=== PATIENT | female | born 1975 | race American Indian/Alaskan Native ===

== ENCOUNTER 2016-07-21 12:28 | Outpatient (CLI) | payer MEDICAID ==
--- NOTE | 2016-07-22 12:06 | Magnetic Resonance Report ---
MRI the RIGHT KNEE WITHOUT CONTRAST: 07/21/16 CLINICAL: Right knee pain and swelling. TECHNIQUE: Sagittal proton density fat sat and T2, coronal T2 fat sat and proton density and axial gradient T2*sequences on a 1.5 Sally magnet. FINDINGS: Flap tear of the posterior horn medial meniscus with oblique hyperintense signal extending to the inferior articular surface. The lateral meniscus is intact. A partial tear of the distal ACL near its tibial attachment. There is hyperintense signal and some thickening of the ligament. The PCL is intact. Intact collateral ligaments. The posterolateral corner structures including the popliteus tendon are intact. Normal marrow signal with no bone contusion or fracture. Moderate focal thinning of the medial femoral cartilage. There is a large knee joint effusion. No popliteal cyst. Intact patella within normal cartilage, tendon and retinaculum. IMPRESSION: 1.Old tear of the posterior horn medial meniscus. 2. Old partial thickness tear of the distal ACL. 3. Large knee joint effusion. 4. Focal thinning of the medial femoral cartilage but no loose bodies identified.
== END 2016-07-21 12:29 | disposition home or self-care (01) ==
LOC: SPVIMAG 12:28
PROVIDERS: ATTEND Radiology Vascular & Interventional Radiology
DX: S83.241A Other tear of medial meniscus, current injury, right knee, initial encounter (principal); M25.461 Effusion, right knee; M79.89 Other specified soft tissue disorders; X58.XXXA Exposure to other specified factors, initial encounter; Y93.89 Activity, other specified; Y92.89 Other specified places as the place of occurrence of the external cause; Y99.8 Other external cause status
CPT/HCPCS: 73721

== ENCOUNTER 2016-10-12 23:08 | Emergency (ER) | payer MEDICAID ==
[2016-10-13 02:36] LABS: Eosinophils % (Auto) 0.6 % (0.0-4.3); Hematocrit 39.1 % (30.3-42.9); Mean Corpuscular HGB Conc 33 % (30-34); Mean Corpuscular Hemoglobin 29 pg (28-32); Mean Corpuscular Volume 89 fl (79-97); Platelet Count 201 K/mm3 (140-440); Red Blood Count 4.41 M/mm3 (3.65-5.03); Red Cell Distribution Width 13.8 % (13.2-15.2); White Blood Count 8.8 K/mm3 (4.5-11.0)
[2016-10-13 02:43] LABS: Bilirubin,Urine NEG (Negative); Blood,Urine MOD (Negative); Ketones,Urine NEG (Negative); Leukocyte Esterase,Urine NEG (Negative); Mucus,Urine FEW /HPF; Nitrite,Urine NEG (Negative); Protein,Urine <15 mg/dL mg/dL (Negative); Urobilinogen,Urine < 2.0 mg/dL (<2.0)
[2016-10-13 02:45] LABS: Anion Gap 19 mmol/L; Blood Urea Nitrogen 14 mg/dL (7-17); Calcium 9.6 mg/dL (8.4-10.2); Carbon Dioxide 25 mmol/L (22-30); Chloride 99.3 mmol/L (98-107); Glucose 106 mg/dL (65-100); Potassium 4.8 mmol/L (3.6-5.0); Sodium 138 mmol/L (137-145)
[2016-10-13 09:28] VITALS: BP 152/87
[2016-10-13] MEDS ORDERED: PROTONIX PO ONE (09:29)
[2016-10-13] MEDS ORDERED: ALUM-MAG HYDROX-SIMETH 200-200-20MG/5ML PO ONE (09:29)
[2016-10-13] MEDS ORDERED: TYLENOL #3 PO ONE (09:30)
--- NOTE | 2016-10-13 09:30 | Emergency Department Report ---
HPI - General Chief Complaint: Abdominal Pain - HPI HPI: 41-year-old -[place] female with a past medical history of gastritis and esophagitis comes in with complaint of abdominal pain that started yesterday patient reports that she hasn't followed up with her M.D. since last year was told by another M.D. to take Zantac and Tylenol but patient states Tylenol isn't working now. Patient denies any nausea vomiting diarrhea patient admits to moving her bowels. Patient reports that she was followed at [facility]-about a year ago. She is followed by primary [facility] on [address]. Last saw them about 3 months ago. She reports that laying down on the left side aggravates the pain more nothings alleviating it. She reports she has switched her melts to Lactaid free which has helped some. She does report that she has been on Zantac 150 twice a day. And Tylenol for pain. Currently on amlodipine 10 mg for elevated blood pressure. ED Past Medical Hx - Past Medical History Previous Medical History?: Yes Additional medical history: heartburn/gerd - Surgical History Past Surgical History?: No - Social History Smoking Status: Never Smoker Substance Use Type: Alcohol - Medications Home Medications: Home Medications Medication Instructions Recorded Confirmed Last Taken Type Acetamin/Codeine 120-12Mg/5 ml 5 ml PO TID PRN #30 ml 06/08/15 Unknown Rx [Tylenol/Codeine] Amoxicillin/K Clav Tab [Augmentin 1 tab PO Q12HR #14 tab 06/08/15 Unknown Rx 875 mg] Cetirizine HCl [Allergy Relief] 10 mg PO DAILY #30 tablet 06/08/15 Unknown Rx Fluticasone [Flonase] 1 spray NS QDAY #1 bottle 06/08/15 Unknown Rx Ibuprofen [Motrin] 800 mg PO Q8HR PRN #30 tablet 06/08/15 Unknown Rx Prednisone [predniSONE 10 mg 10 mg PO .TAPER #1 tab.ds.pk 06/08/15 Unknown Rx (6-Day Pack, 21 Tabs)] Acetaminophen/Codeine [Tylenol 1 tab PO Q6H PRN #15 tab 10/13/16 Unknown Rx /Codeine # 3 tab] Pantoprazole [Protonix] 40 mg PO QDAY #30 tablet 10/13/16 Unknown Rx Ranitidine HCl [Zantac 150 MG TAB] 150 mg PO BID #60 tablet 10/13/16 Unknown Rx ED Review of Systems ROS: Stated complaint: STOMACH PAIN Other details as noted in HPI Constitutional: denies: chills, fever Eyes: denies: eye pain, eye discharge, vision change ENT: denies: ear pain, throat pain Respiratory: denies: cough, shortness of breath, wheezing Cardiovascular: denies: chest pain, palpitations Endocrine: no symptoms reported Gastrointestinal: abdominal pain. denies: nausea, vomiting, diarrhea, constipation Genitourinary: denies: urgency, dysuria, discharge Musculoskeletal: denies: back pain, joint swelling, arthralgia Skin: denies: rash, lesions Neurological: denies: headache, weakness, paresthesias Psychiatric: denies: anxiety, depression Physical Exam - Physical Exam Vital Signs: Vital Signs 10/13/16 01:35 Temperature 98.1 F Pulse Rate 77 Respiratory 16 Rate Blood Pressure 147/100 O2 Sat by Pulse 99 Oximetry Physical Exam: GENERAL: Alert and oriented x3, no apparent distress, Normal Gait, atraumatic. HEAD: Head is normocephalic and a-traumatic. EYES: Extra ocular muscles are intact. Pupils are equal, round, and reactive to light and accommodation. NOSE: Nose symetrical, Nontender,Nares appeared normal. MOUTH:Mouth is well hydrated and without lesions. Tonsils nonerythematous or swollen, Uvula midline, Tongue not elevated. Mucous membranes are moist. Posterior pharynx clear, no exudate or lesions. Patent airways. NECK: Supple. Non edematous, No carotid bruits. No lymphadenopathy or thyromegaly. LUNGS: Symetrical with respiration, No wheezing, no rales or crackles, CTAB. HEART: S1, S2 present, regular rate and rhythm without murmur, no rubs, no gallops. ABDOMEN: No organomegaly was noted,Positive bowel sounds, soft, and non- distended. . Nontender to palpation on all Quadrants, NO CVA tenderness. EXTREMITIES/MUSCULOSKELETAL: No cyanosis, clubbing, rash, lesions or edema. Full ROM bilaterally. UE/LE Pulses 2+ bilaterally. LE and UE 5+ strength bilaterally NEUROLOGIC: No focal Deficit, Cranial nerves II through XII are grossly intact. No loss of sensation, No facial droop, PSYCHIATRIC: Mood is congruent with affect, SKIN: Warm and dry, No lesions, No ulceration or induration present ED Course Vital Signs 10/13/16 01:35 Temperature 98.1 F Pulse Rate 77 Respiratory 16 Rate Blood Pressure 147/100 O2 Sat by Pulse 99 Oximetry ED Medical Decision Making - Lab Data Result diagrams: 10/13/16 02:08 10/13/16 02:08 - Medical Decision Making Patient's been evaluated by this provider in fast track. We will give patient omeprazole 40 mg by mouth now. Give patient Mylanta 15 mL's by mouth now. Tylenol 3 by mouth now. Discussed with patient to keep her appointment that she made for [facility] for tomorrow which is Wednesday. Discussed with patient that she needs to speak to her primary care provider about elevation of her systolic. Discussed patient with a got line and states that the systolic to be less than 130. Discussed patient to speak with her doctor about maybe starting her on a low dose of hydrochlorothiazide. Discussed with patient that her potassium was within normal limits of 4.8. Patient verbalize understanding. Critical care attestation.: If time is entered above; I have spent that time in minutes in the direct care of this critically ill patient, excluding procedure time. ED Disposition Clinical Impression: Gastritis Qualifiers: Gastritis type: unspecified gastritis Chronicity: unspecified Gastritis bleeding: without bleeding Qualified Code(s): K29.70 - Gastritis, unspecified, without bleeding Disposition: DISCHARGED TO HOME OR SELFCARE Is pt being admited?: No Does the pt Need Aspirin: No Condition: Stable Instructions: Abdominal Pain (ED) Additional Instructions: Take medication as prescribed. Keep your appointment with [facility] for tomorrow. Follow up with her primary care provider in regards to your elevated blood pressure. Prescriptions: Acetaminophen/Codeine [Tylenol /Codeine # 3 tab] 1 tab PO Q6H PRN #15 tab PRN Reason: Pain Pantoprazole [Protonix] 40 mg PO QDAY #30 tablet Ranitidine HCl [Zantac 150 MG TAB] 150 mg PO BID #60 tablet Referrals: ELIZABETH MEDINA MD [Primary Care Provider] - 3-5 Days Forms: Work/School Release Form(ED), Accompanied Note
== END 2016-10-13 09:53 | disposition home or self-care (01) ==
LOC: ED 23:08
DX: K29.70 Gastritis, unspecified, without bleeding (principal); K21.9 Gastro-esophageal reflux disease without esophagitis
CPT/HCPCS: 36415; 80048; 81001; 81025; 85025; 99283

== ENCOUNTER 2016-10-18 06:14 | Inpatient (IN) | payer MEDICAID ==
[2016-10-18 07:38] LABS: Basophils % (Auto) 0.4 % (0.0-1.8); Eosinophils % (Auto) 0.1 % (0.0-4.3); Hematocrit 40.3 % (30.3-42.9); Hemoglobin 13.2 gm/dl (10.1-14.3); Mean Corpuscular HGB Conc 33 % (30-34); Mean Corpuscular Hemoglobin 29 pg (28-32); Mean Corpuscular Volume 89 fl (79-97); Platelet Count 215 K/mm3 (140-440); Red Blood Count 4.52 M/mm3 (3.65-5.03); Red Cell Distribution Width 13.6 % (13.2-15.2); White Blood Count 12.3 K/mm3 (4.5-11.0)
[2016-10-18 07:55] LABS: Alanine Aminotransferase 11 units/L (7-56); Albumin 4.5 g/dL (3.9-5); Albumin/Globulin Ratio 1.3 %; Alkaline Phosphatase 92 units/L (35-129); Anion Gap 18 mmol/L; Bilirubin,Total 0.8 mg/dL (0.1-1.2); Blood Urea Nitrogen 8 mg/dL (7-17); Calcium 9.5 mg/dL (8.4-10.2); Carbon Dioxide 24 mmol/L (22-30); Chloride 97.4 mmol/L (98-107); Glucose 131 mg/dL (65-100); Lipase 19 units/L (13-60); Potassium 3.8 mmol/L (3.6-5.0); Sodium 136 mmol/L (137-145); Total Protein 8.1 g/dL (6.3-8.2)
[2016-10-18 08:16] LABS: Bilirubin,Urine NEG (Negative); Blood,Urine SM (Negative); Ketones,Urine 80 mg/dL (Negative); Leukocyte Esterase,Urine NEG (Negative); Mucus,Urine 2+ /HPF; Nitrite,Urine NEG (Negative); Urobilinogen,Urine < 2.0 mg/dL (<2.0)
[2016-10-18] MEDS ORDERED: ZOFRAN IV ONE (10:55)
[2016-10-18] MEDS ORDERED: NACL 0.9% 1000 ML 1,000 ML IV ONE (10:55)
[2016-10-18] MEDS ORDERED: MORPHINE IV ONE (10:55)
[2016-10-18] MEDS ORDERED: NACL ONE (11:00)
--- NOTE | 2016-10-18 11:00 | Emergency Department Report ---
HPI - General Chief Complaint: Abdominal Pain Time Seen by Provider: 10/18/16 10:45 - HPI HPI: Room 3 The patient is a 41-year-old female presenting with a chief complaint of abdominal pain. The patient states she is left upper quadrant abdominal pain intermittently for approximately one year. Patient states the pain worsened 05/2017 she came to the emergency department. The patient was evaluated in the ED and then follow up with her power manager following day. The patient states the power manager scheduled her to have a colonoscopy 11/12/2016. Patient states last night at 22:00 the pain worsened. Patient admits to nausea and vomiting but denies diarrhea. The patient states her last bowel movement occurred 3-4 days ago when she normally has a bowel movement every other day. The patient gives her pain a score of 10/10 Location: Left upper quadrant Duration: [see above] Quality: Pain Severity: 10/10 Modifying factors: [see above] Context: [see above] Mode of transportation: [not driving] ED Past Medical Hx - Past Medical History Previous Medical History?: Yes Hx Hypertension: Yes Hx GERD: Yes Additional medical history: heartburn/gerd - Surgical History Past Surgical History?: No - Family History Family history: no significant - Social History Smoking Status: Never Smoker Substance Use Type: Alcohol (occasional) - Medications Home Medications: Home Medications Medication Instructions Recorded Confirmed Last Taken Type Acetamin/Codeine 120-12Mg/5 ml 5 ml PO TID PRN #30 ml 06/08/15 Unknown Rx [Tylenol/Codeine] Amoxicillin/K Clav Tab [Augmentin 1 tab PO Q12HR #14 tab 06/08/15 Unknown Rx 875 mg] Cetirizine HCl [Allergy Relief] 10 mg PO DAILY #30 tablet 06/08/15 Unknown Rx Fluticasone [Flonase] 1 spray NS QDAY #1 bottle 06/08/15 Unknown Rx Ibuprofen [Motrin] 800 mg PO Q8HR PRN #30 tablet 06/08/15 Unknown Rx Prednisone [predniSONE 10 mg 10 mg PO .TAPER #1 tab.ds.pk 06/08/15 Unknown Rx (6-Day Pack, 21 Tabs)] Acetaminophen/Codeine [Tylenol 1 tab PO Q6H PRN #15 tab 10/13/16 Unknown Rx /Codeine # 3 tab] Pantoprazole [Protonix] 40 mg PO QDAY #30 tablet 10/13/16 Unknown Rx Ranitidine HCl [Zantac 150 MG TAB] 150 mg PO BID #60 tablet 10/13/16 Unknown Rx ED Review of Systems ROS: Stated complaint: ABD PAIN Other details as noted in HPI Comment: All other systems reviewed and negative Constitutional: denies: chills, fever Eyes: denies: eye pain, eye discharge, vision change ENT: denies: ear pain, throat pain Respiratory: denies: cough, shortness of breath, wheezing Cardiovascular: denies: chest pain, palpitations Endocrine: no symptoms reported Gastrointestinal: abdominal pain, nausea, vomiting, constipation. denies: diarrhea Genitourinary: denies: urgency, dysuria, discharge Musculoskeletal: denies: back pain, joint swelling, arthralgia Skin: denies: rash, lesions Neurological: denies: headache, weakness, paresthesias Psychiatric: denies: anxiety, depression Hematological/Lymphatic: denies: easy bleeding, easy bruising Physical Exam - Physical Exam Vital Signs: Vital Signs 10/18/16 07:08 Temperature 98.4 F Pulse Rate 54 L Respiratory 18 Rate Blood Pressure 188/95 O2 Sat by Pulse 100 Oximetry Physical Exam: GENERAL: The patient is well-developed well-nourished female lying on stretcher appearing to be in moderate discomfort. Foul odor to breath HEENT: Normocephalic. Atraumatic. Extraocular motions are intact. Patient has moist mucous membranes. NECK: Supple. Trachea midline CHEST/LUNGS: Clear to auscultation. There is no respiratory distress noted. HEART/CARDIOVASCULAR: Regular. There is no tachycardia. There is no gallop rub or murmur. ABDOMEN: Abdomen is soft, with tenderness to palpation in the epigastric and left upper quadrant. Patient has normal bowel sounds. There is no abdominal distention. SKIN: There is no rash. There is no edema. There is no diaphoresis. NEURO: The patient is awake, alert, and oriented. The patient is cooperative. The patient has normal speech MUSCULOSKELETAL: There is no evidence of acute injury. ED Course Vital Signs 10/18/16 07:08 Temperature 98.4 F Pulse Rate 54 L Respiratory 18 Rate Blood Pressure 188/95 O2 Sat by Pulse 100 Oximetry - Consultations Consultation #1: 10/18/16 14:07 Case discussed with surgery Dr. Alarcon-requests hospitalist admit, keep patient nothing by mouth and administered Levaquin and he will evaluate the patient in consultation Consultation #2: 10/18/16 14:07 Hospitalist notified ED Medical Decision Making - Lab Data Result diagrams: 10/18/16 07:23 10/18/16 07:23 Laboratory Results - last 24 hr 10/18/16 10/18/16 10/18/16 07:23 07:23 07:57 WBC 12.3 H RBC 4.52 Hgb 13.2 Hct 40.3 MCV 89 MCH 29 MCHC 33 RDW 13.6 Plt Count 215 Lymph % (Auto) 11.7 L [place] % (Auto) 4.4 Eos % (Auto) 0.1 Baso % (Auto) 0.4 Lymph # 1.4 [place]imer # 0.5 Eos # 0.0 Baso # 0.0 Seg Neutrophils % 83.4 H Seg Neutrophils # 10.3 H Sodium 136 L Potassium 3.8 Chloride 97.4 L Carbon Dioxide 24 Anion Gap 18 BUN 8 Creatinine 0.8 Estimated GFR > 60 BUN/Creatinine Ratio 10.00 Glucose 131 H Calcium 9.5 Total Bilirubin 0.8 AST 13 ALT 11 Alkaline Phosphatase 92 Total Protein 8.1 Albumin 4.5 Albumin/Globulin Ratio 1.3 Lipase 19 Urine Color Yellow Urine Turbidity Clear Urine pH 6.0 Ur Specific [place] 1.024 Urine Protein 30 mg/dl Urine Glucose (UA) Neg Urine Ketones 80 Urine Blood Sm Urine Nitrite Neg Ur Reducing Substances Not Reportable Urine Bilirubin Neg Urine Ictotest Not Reportable Urine Urobilinogen < 2.0 Ur Leukocyte Esterase Neg Urine WBC (Auto) 1.0 Urine RBC (Auto) 20.0 U Epithel Cells (Auto) 2.0 Urine Mucus 2+ Urine HCG, Qual Negative - Radiology Data Radiology results: report reviewed (CT abdomen and pelvis, abdomen ultrasound), image reviewed (CT abdomen and pelvis, abdominal ultrasound) CT abdomen and pelvis (read by radiologist) (-cholelithiasis with gallbladder wall thickening and questionable pericholecystic fluid suggestive acute cholecystitis. No evidence of choledocholithiasis. No signs of pancreatitis. No appendicitis. Normal pelvis. Abdominal ultrasound (read by radiologist) (-cholelithiasis and gallbladder wall thickening suspicious for acute cholecystitis. - Differential Diagnosis diverticulitis, peptic ulcer disease, constipation, SBO Critical care attestation.: If time is entered above; I have spent that time in minutes in the direct care of this critically ill patient, excluding procedure time. ED Disposition Clinical Impression: Acute cholecystitis, Acute abdominal pain Disposition: OP ADMITTED IP TO THIS HOSP Is pt being admited?: Yes Does the pt Need Aspirin: No Condition: Fair Instructions: Abdominal Pain (ED) Referrals: PRIMARY CARE, [Primary Care Provider] - 3-5 Days Time of Disposition: 13:55 (surgery paged)
--- NOTE | 2016-10-18 12:27 | Cat Scan Report ---
CT ABDOMEN AND PELVIS WITH CONTRAST: 10/18/16 12:01 CLINICAL: Epigastric and left upper quadrant abdominal pain. COMPARISON: None. TECHNIQUE: Volumetric acquisition and 1.25 millimeter scan reconstructions after the uneventful intravenous injection of 100 cc Omnipaque 300. Consent was obtained prior to the administration of contrast. Oral contrast was not given. FINDINGS: Abdomen: Cholelithiasis with a 1.6 cm predominantly lucent calculus layering dependently in the gallbladder. It has a calcified rim. Gallbladder is normally distended with a thickened wall measuring 5 mm. There is questionable small volume pericholecystic fluid.The bile ducts are normal. No evidence of choledocholithiasis. The common hepatic duct measures 4 mm. Normal stomach, duodenum, pancreas and spleen. Normal right adrenal gland and right kidney. An 8mm hypodense nodule at the left adrenal gland measures twenty-seven Hounsfield units in density. The left kidney is normal. The renal collecting systems and ureters are nondilated. The small bowel is normal.Normal ascending, transverse and descending colon. Normal appendix. No mass, lymphadenopathy or ascites.No pneumoperitoneum. Pelvis: Normal urinary bladder.Normal uterus and ovaries. No adnexal mass or free fluid. Normal rectum and sigmoid colon. Bone windows demonstrate no bone lesion. IMPRESSION:1. Cholelithiasis with gall bladder wall thickening and questionable pericholecystic fluid suggesting acute cholecystitis. 2. No evidence of choledocholithiasis. 3. No signs of pancreatitis. 4. No appendicitis. 5. Normal pelvis.
--- NOTE | 2016-10-18 13:39 | Ultrasound Report ---
RIGHT UPPER QUADRANT ABDOMINAL ULTRASOUND: 10/18/16 06:14:00 CLINICAL: Epigastric abdominal pain and abnormal gallbladder on CT. FINDINGS: High-resolution ultrasound demonstrated a partially contracted gallbladder with a 4.6 mm thick wall and at least three stones in the gallbladder. Stones measure 1.5, 1.4 and 0.5 cm. No pericholecystic fluid. The bile ducts are normal. The common bile duct measures 4.0 mm diameter. Normal liver size, contour and echogenicity. Normal pancreas. The right kidney is normal and measures 11.1 x 5.6 x 5.5cm. No ascites or mass. IMPRESSION: Cholelithiasis and gall bladder wall thickening suspicious for acute cholecystitis. Recommend HIDA scan.
[2016-10-18] MEDS ORDERED: BENTYL IM ONE ×2 (13:58→15:07)
[2016-10-18] MEDS ORDERED: SUBLIMAZE IV ONE (13:58)
[2016-10-18] MEDS ORDERED: LEVAQUIN 500MG/100ML 500 MG/100 ML BAG IV ONE ×2 (14:06→15:07)
--- NOTE | 2016-10-18 14:07 | History and Physical Report ---
History of Present Illness Chief complaint: Abdominal pain History of present illness: 41 YO Female with Obesity, HTN, GERD, Seasonal Allergies presents to ED for evaluation. Pt states she has been experiencing abdominal pain for the past year , but symptoms have worsened over the past 12 hours. Pt states that pain is 10/ 10, Localized to RUQ and associated with nausea, and vomiting. Pt unablt to tolerate diet. Pt denies fever, chills, CP, Palpitations, Syncope, unintentional weight loss, night sweats, jaundice, BRBPR, skin rash, ingestion of food or water from new or different sources. Past History Past Medical History: GERD, hypertension Past Surgical History: No surgical history, Other (reviewed) Social history: , lives with family. denies: smoking, alcohol abuse, prescription drug abuse Family history: hypertension Medications and Allergies Allergies Allergy/AdvReac Type Severity Reaction Status Date / Time No Known Allergies Allergy Verified 06/08/15 15:34 Home Medications Medication Instructions Recorded Confirmed Last Taken Type Acetamin/Codeine 120-12Mg/5 ml 5 ml PO TID PRN #30 ml 06/08/15 Unknown Rx [Tylenol/Codeine] Amoxicillin/K Clav Tab [Augmentin 1 tab PO Q12HR #14 tab 06/08/15 Unknown Rx 875 mg] Cetirizine HCl [Allergy Relief] 10 mg PO DAILY #30 tablet 06/08/15 Unknown Rx Fluticasone [Flonase] 1 spray NS QDAY #1 bottle 06/08/15 Unknown Rx Ibuprofen [Motrin] 800 mg PO Q8HR PRN #30 tablet 06/08/15 Unknown Rx Prednisone [predniSONE 10 mg 10 mg PO .TAPER #1 tab.ds.pk 06/08/15 Unknown Rx (6-Day Pack, 21 Tabs)] Acetaminophen/Codeine [Tylenol 1 tab PO Q6H PRN #15 tab 10/13/16 Unknown Rx /Codeine # 3 tab] Pantoprazole [Protonix] 40 mg PO QDAY #30 tablet 10/13/16 Unknown Rx Ranitidine HCl [Zantac 150 MG TAB] 150 mg PO BID #60 tablet 10/13/16 Unknown Rx Active Meds: Active Medications Levofloxacin/Dextrose (Levaquin 500mg/100ml) 500 mg in 100 mls @ 100 mls/hr IV ONCE ONE Stop: 10/18/16 15:05 Review of Systems All systems: negative Gastrointestinal: abdominal pain, nausea, vomiting Exam - Constitutional Vitals: Temp Pulse Resp BP Pulse Ox 98.4 F 54 L 18 188/95 100 10/18/16 07:08 10/18/16 07:08 10/18/16 07:08 10/18/16 07:08 10/18/16 07:08 General appearance: Present: obese - EENT Eyes: Present: PERRL ENT: hearing intact, clear oral mucosa - Neck Neck: Present: supple, normal ROM - Respiratory Respiratory effort: normal Respiratory: bilateral: CTA - Cardiovascular Heart Sounds: Present: S1 & S2. Absent: rub, click - Extremities Extremities: pulses symmetrical, No edema Peripheral Pulses: within normal limits - Abdominal General gastrointestinal: Present: soft, tender, non-distended, normal bowel sounds Localized gastrointestinal: tender: RUQ Female genitourinary: Present: normal - Rectal Rectal Exam: normal exam-external/orifice, normal rectal tone - Integumentary Integumentary: Present: clear, warm, dry - Musculoskeletal Musculoskeletal: gait normal, strength equal bilaterally - Psychiatric Psychiatric: appropriate mood/affect, intact judgment & insight - Neurologic Neurologic: CNII-XII intact, moves all extremities Results - Labs CBC & Chem 7: 10/18/16 07:23 10/18/16 07:23 Labs: Abnormal lab results 10/18/16 10/18/16 Range/Units 07:23 07:23 WBC 12.3 H (4.5-11.0) K/mm3 Lymph % (Auto) 11.7 L (13.4-35.0) % Seg Neutrophils % 83.4 H (40.0-70.0) % Seg Neutrophils # 10.3 H (1.8-7.7) K/mm3 Sodium 136 L (137-145) mmol/L Chloride 97.4 L (98-107) mmol/L Glucose 131 H (65-100) mg/dL Assessment and Plan - Patient Problems (1) Acute cholecystitis Current Visit: Yes Status: Acute Plan to address problem: IV abx, IVF replacement, Surgery team consulted. Surgical intervention as per surgical team. (2) Accelerated hypertension Current Visit: Yes Status: Acute Plan to address problem: Monitor BP q shift, hydralazine prn. (3) Obesity Current Visit: Yes Status: Acute Qualifiers: Obesity type: O Obesity severity: O Plan to address problem: Pt counseled (4) GERD (gastroesophageal reflux disease) Current Visit: Yes Status: Acute Qualifiers: Esophagitis presence: E Plan to address problem: continue PPI therapy, (5) Acute abdominal pain Current Visit: Yes Status: Acute Plan to address problem: Treat cholecystitis. pain control (6) DVT prophylaxis Current Visit: Yes Status: Acute
[2016-10-18] MEDS ORDERED: ZOFRAN IV PRN (14:09)
[2016-10-18] MEDS ORDERED: DUONEB 0.5 MG-3 MG/3 ML SOLN IH PRN (14:09)
[2016-10-18] MEDS ORDERED: DULCOLAX PR PRN (14:09)
[2016-10-18] MEDS ORDERED: MILK OF MAGNESIA PO PRN (14:09)
[2016-10-18] MEDS ORDERED: TYLENOL PO PRN (14:09)
[2016-10-18] MEDS ORDERED: BENADRYL IV PRN (14:12)
[2016-10-18] MEDS ORDERED: APRESOLINE IV PRN (14:12)
[2016-10-18] MEDS ORDERED: SUBLIMAZE ONE ×2 (15:10→15:34)
--- NOTE | 2016-10-18 17:33 | Progress Note ---
Assessment and Plan full consult dictated. 41 y/o female HTN, GERD. r/o acute cholecystitis Keep NPO pain meds IV Levaquin HIDA in am. Lap GB in next 24-48 hrs pending HIDA results will follow. thanks. Laboratory Tests 10/18/16 10/18/16 07:23 07:23 WBC 12.3 H Hgb 13.2 Hct 40.3 Plt Count 215 Sodium 136 L Potassium 3.8 Chloride 97.4 L Carbon Dioxide 24 Anion Gap 18 BUN 8 Creatinine 0.8 Total Bilirubin 0.8 AST 13 ALT 11 Alkaline Phosphatase 92 Lipase 19 Objective Vital Signs - 12hr 10/18/16 10/18/16 10/18/16 16:07 16:11 16:56 Temperature 98.5 F 98.5 F Pulse Rate 82 Pulse Rate [ 74 Right Radial] Respiratory 16 16 20 Rate Blood Pressure 149/97 [Left Arm] Blood Pressure 146/92 [Left] O2 Sat by Pulse 99 97 Oximetry - Labs 10/18/16 07:23 10/18/16 07:23
[2016-10-18] MEDS: MORPHINE IV PRN (17:46)
[2016-10-18] MEDS: NACL 0.45% 1000 ML 1,000 ML IV SCH (17:51)
[2016-10-18] MEDS: FLAGYL 500 MG/100 ML 500 MG/100 ML BAG IV SCH (22:45)
--- NOTE | 2016-10-19 00:01 | Consultation ---
REASON FOR CONSULTATION: Rule out acute cholecystitis. HISTORY OF PRESENT ILLNESS: The patient is a 41-year-old female who was admitted through the Emergency Room with recent onset of epigastric which she described as left upper quadrant abdominal pain accompanied by nausea and vomiting. PAST MEDICAL HISTORY: Pertinent for GERD and hypertension. PAST SURGICAL HISTORY: Negative. ALLERGIES: No known allergies. MEDICATIONS: Include \\"blood pressure medicine\\" and Prilosec for her GERD. FAMILY HISTORY: Negative. SOCIAL HISTORY: Negative. Denies any smoking or drinking. REVIEW OF SYSTEMS: Noncontributory. PHYSICAL EXAMINATION: GENERAL: At this time reveals the patient to be awake, alert, cooperative, mild discomfort, but no acute distress. VITAL SIGNS: Show her to be afebrile with temperature 98.5, blood pressure is 149/97, pulse of 74, respirations of 20. HEENT: Pupils are equal and reactive to light and accommodation. Sclerae is nonicteric. ABDOMEN: Reveals to be moderately obese. There is actually right upper quadrant tenderness on palpation and not as much as left upper quadrant tenderness as the patient had originally described. Bowel sounds are present. LABORATORY DATA: Lab work at present includes a CBC which shows a white count of 12.3, H and H is 13.2 and 40.3. Electrolytes are essentially within normal limits including a sodium of 136, potassium of 3.8, chloride of 97, BUN is 8, creatinine is 0.8. Glucose is 131. LFTs are normal including a total bilirubin of 0.8, AST is 13, ALT is 11, alkaline phosphatase is 92. Lipase is normal at 19. A CT of the abdomen has been performed and impression is that of cholelithiasis with gallbladder wall thickening and questionable pericholecystic fluid suggesting acute cholecystitis. Ultrasound of the gallbladder was also performed, the impressions that of cholelithiasis with gallbladder wall thickening, again suspicious for acute cholecystitis, a HIDA scan is recommended. IMPRESSION: At this time is that of a 41-year-old female with; 1. History of gastroesophageal reflux disease and hypertension. 2. Rule out acute cholecystitis. RECOMMENDATIONS: Would keep the patient n.p.o., start IV Levaquin and IV fluid hydration. We will order a HIDA scan as recommended and we will proceed with laparoscopic cholecystectomy, possible open cholecystectomy within the next 24-48 hours pending an HIDA scan results. We will follow with you. Thank you very much for the consultation. JOB# [id number] DINORA/NIDIA
[2016-10-19] MEDS: MORPHINE IV PRN (00:19)
--- NOTE | 2016-10-19 03:08 | Admit Criteria Form ---
Admission Criteria Documentation: ABDOMINAL PAIN Clinical Indications for Admission to Inpatient Care (Place 'X' for any and all applicable criteria): Admission is indicated for ANY ONE of the following(1)(2)(3)(4)(5): [ X]I. Inpatient admission required rather than observation care (Also use Abdominal Pain: Observation Care, as appropriate) because of ANY ONE of the following: [ X]a) Severe pain requiring acute inpatient management [ ]b) Identification of etiology/finding that requires inpatient care (eg, aortic dissection, free air) [ ]c) Absent bowel sounds with complete ileus(6) [ ]d) Suspected toxic megacolon [ ]e) Severe electrolyte abnormalities requiring inpatient care [ ]f) High fever or infection requiring inpatient admission as indicated by ANY ONE of following(7)(8): [ ] i) Appropriate outpatient or observational care antimicrobial treatment unavailable, not effective, or not feasible [ ] ii) Documented bacteremia [ ] iii) Temperature > 104.9 degrees F (oral) [ ] iv) T >103.1 F (oral) or < 96.8 F(rectal) that does not respond to all emergency treatment measures [ ]g) Signs of intestinal obstruction [B] [ ]h) Hemodynamic instability [ ]i) IV fluid to replace significant ongoing losses (greater than 3 L/m2 per day) (12)(13) [ ]j) Percutaneous or open drainage (eg, abscess, biliary tract ) procedures [ ]k) Parenteral nutrition regimen that must be implemented on inpatient basis [ ]l) Other condition,treatment or monitoring requiring inpatient admission. [ ]II. Peritoneal signs present [ ]III. Surgery needed that cannot be performed on an ambulatory basis. [ ]IV. Evaluation requires patient to not eat or drink for extended period ( eg, more than 24 hours). [ ]V. Contraindications and/or Inappropriate clinical situations for Observational Care in patients with abdominal pain, when ANY ONE of the following is required: [ ]a) Thorough evaluation is required to prevent catastrophic events due to delays in diagnosing (e.g.Mesenteric ischemia) 1,3 [ ]b) Patient with severe pathology or with chronic symptoms unlikely to improve in the ED stay (3) [ ]. General contraindications and/or Inappropriate clinical situations for Observational Care in patients with abdominal pain, when ANY ONE of the following is required: [ ]a) Prediction of prolongation of LOS based on ANY ONE of the following may be considered as a contraindication for observational care 2, 3, 4, 5, 6, 7, 8, 9, 10, 11 [ ]i) Age > 65 yrs. [ ]ii) Patient arriving by ambulance [ ]iii) Patient with high acuity [ ]iv) Patient requiring vital sign monitoring [ ]v) Patient on IV medication [ ]b) Systolic blood pressures 180mmHg 3,12 [ ]c) Patient with altered mental status including delirium and other alteration of consciousness, (3) [ ]d) Patient whose discharge disposition will be to a longterm home or rehabilitation home should not be managed in Emergency Department Observation Unit. CMS rule requires 3 days hospital stay before such placement.3,13 [ ]e) Patient with failure to thrive due to broad array of etiologies 3,16,17 [ ]f) Inability to ambulate 3,14 Extended stay beyond goal length of stay may be needed for(2)(3): [ ]a) Persistent abdominal pain with suspected intra-abdominal process [ ]b) Diagnosed condition requiring continued stay (e.g., pancreatitis, complicated diverticulitis) [ ]c) Surgery (e.g., colectomy) The original [facility] content created by [employer] has been revised. The portions of the content which have been revised are identified through the use of italic text or in bold, and [facility] has neither reviewed nor approved the modified material.All other unmodified content is copyright [facility]. Please see references footnoted in the original [facility] edition 2016 Admission Criteria Met: Yes
[2016-10-19] MEDS: NACL 0.45% 1000 ML 1,000 ML IV SCH (05:25)
[2016-10-19] MEDS: FLAGYL 500 MG/100 ML 500 MG/100 ML BAG IV SCH ×3 (05:25→22:48)
[2016-10-19 06:00] LABS: Basophils % (Auto) 0.3 % (0.0-1.8); Eosinophils % (Auto) 0.5 % (0.0-4.3); Hematocrit 37.5 % (30.3-42.9); Hemoglobin 12.4 gm/dl (10.1-14.3); Mean Corpuscular HGB Conc 33 % (30-34); Mean Corpuscular Hemoglobin 29 pg (28-32); Mean Corpuscular Volume 89 fl (79-97); Platelet Count 189 K/mm3 (140-440); Red Blood Count 4.21 M/mm3 (3.65-5.03); Red Cell Distribution Width 13.7 % (13.2-15.2); White Blood Count 10.6 K/mm3 (4.5-11.0)
[2016-10-19 06:22] LABS: Alanine Aminotransferase 9 units/L (7-56); Albumin 3.6 g/dL (3.9-5); Albumin/Globulin Ratio 0.9 %; Alkaline Phosphatase 82 units/L (35-129); Anion Gap 18 mmol/L; BUN/Creatinine Ratio 6.66; Bilirubin,Total 1.1 mg/dL (0.1-1.2); Blood Urea Nitrogen 6 mg/dL (7-17); Calcium 9.4 mg/dL (8.4-10.2); Carbon Dioxide 25 mmol/L (22-30); Chloride 98.8 mmol/L (98-107); Glucose 92 mg/dL (65-100); Potassium 4.6 mmol/L (3.6-5.0); Sodium 137 mmol/L (137-145); Total Protein 7.6 g/dL (6.3-8.2)
[2016-10-19] MEDS ORDERED: PROTONIX PO SCH (10:00)
--- NOTE | 2016-10-19 10:32 | Nuclear Medicine Report ---
Hepatobiliary scan: Examination performed with 5 mm technetium 99m Choletec. History: Evaluate for acute cholecystitis. Findings: Uniform distribution of activity is noted in liver with subsequent appearance of the biliary system. The gallbladder is not visualized. Duodenum is visualized at the normal time. No persistence of activity is noted in the common bile duct and intrahepatic ducts and liver. Impression: Non-visualization of gallbladder suggestive of cystic duct obstruction. No obstruction to the common bile duct.
[2016-10-19] MEDS: LEVAQUIN 500MG/100ML 500 MG/100 ML BAG IV SCH (11:05)
--- NOTE | 2016-10-19 13:21 | Progress Note ---
Assessment and Plan Pt status quo. Abd soft. still mild RUQ pain HIDA - non vis GB imp acute cholecystitis for lap GB in am Selected Entries 10/19/16 10/19/16 10/19/16 00:00 04:00 07:00 Temperature 100.0 F H Pulse Rate [ 94 H Left Radial] Blood Pressure 137/92 [Left Arm] Laboratory Tests 10/18/16 10/19/16 10/19/16 07:23 04:16 04:16 WBC 12.3 H 10.6 Hgb 12.4 Hct 37.5 Sodium 137 Potassium 4.6 D Chloride 98.8 Carbon Dioxide 25 Total Bilirubin 1.1 AST 12 ALT 9 Alkaline Phosphatase 82 Albumin/Globulin Ratio 0.9 Objective Vital Signs - 12hr 10/19/16 10/19/16 10/19/16 04:00 07:00 11:05 Temperature 98.5 F 97.6 F Pulse Rate [ 94 H Left Radial] Pulse Rate [ 97 H Right Radial] Respiratory 18 16 Rate Blood Pressure 152/100 137/92 [Left Arm] O2 Sat by Pulse 98 95 100 Oximetry - Labs 10/19/16 04:16 10/19/16 04:16 Diabetes panel 10/19/16 Range/Units 04:16 Sodium 137 (137-145) mmol/L Potassium 4.6 D (3.6-5.0) mmol/L Chloride 98.8 (98-107) mmol/L Carbon Dioxide 25 (22-30) mmol/L BUN 6 L (7-17) mg/dL Creatinine 0.9 (0.7-1.2) mg/dL Glucose 92 (65-100) mg/dL Calcium 9.4 (8.4-10.2) mg/dL AST 12 (5-40) units/L ALT 9 (7-56) units/L Alkaline Phosphatase 82 (35-129) units/L Total Protein 7.6 (6.3-8.2) g/dL Albumin 3.6 L (3.9-5) g/dL Calcium panel 10/19/16 Range/Units 04:16 Calcium 9.4 (8.4-10.2) mg/dL Albumin 3.6 L (3.9-5) g/dL Pituitary panel 10/19/16 Range/Units 04:16 Sodium 137 (137-145) mmol/L Potassium 4.6 D (3.6-5.0) mmol/L Chloride 98.8 (98-107) mmol/L Carbon Dioxide 25 (22-30) mmol/L BUN 6 L (7-17) mg/dL Creatinine 0.9 (0.7-1.2) mg/dL Glucose 92 (65-100) mg/dL Calcium 9.4 (8.4-10.2) mg/dL Adrenal panel 10/19/16 Range/Units 04:16 Sodium 137 (137-145) mmol/L Potassium 4.6 D (3.6-5.0) mmol/L Chloride 98.8 (98-107) mmol/L Carbon Dioxide 25 (22-30) mmol/L BUN 6 L (7-17) mg/dL Creatinine 0.9 (0.7-1.2) mg/dL Glucose 92 (65-100) mg/dL Calcium 9.4 (8.4-10.2) mg/dL Total Bilirubin 1.1 (0.1-1.2) mg/dL AST 12 (5-40) units/L ALT 9 (7-56) units/L Alkaline Phosphatase 82 (35-129) units/L Total Protein 7.6 (6.3-8.2) g/dL Albumin 3.6 L (3.9-5) g/dL
--- NOTE | 2016-10-19 14:05 | Anesthesia Day of Surgery ---
Anesthesia Day of Surgery - Day of Surgery Patient Examined: Yes Patient H&P Reviewed: Yes Patient is NPO: Yes
--- NOTE | 2016-10-19 14:07 | Anesthesia Consultation ---
Anesthesia Consult and Med Hx - Airway Anesthetic Teeth Evaluation: Good, Caps ROM Head & Neck: Adequate Mental/Hyoid Distance: Adequate Mallampati Class: Class II Intubation Access Assessment: Probably Good - Pulmonary Exam CTA: Yes - Cardiac Exam Cardiac Exam: RRR - Pre-Operative Health Status ASA Pre-Surgery Classification: ASA2 Proposed Anesthetic Plan: General - Cardiovascular System Hx Hypertension: Yes - Other Systems Hx Alcohol Use: Yes (occ) - Additional Comments Anesthesia Medical History Comments: No prior general anesthetics. No fam hx of anesthesia problems. Pt NPO.
--- NOTE | 2016-10-19 15:33 | Progress Note ---
Assessment and Plan - Patient Problems (1) Acute cholecystitis Current Visit: Yes Status: Acute Plan to address problem: IV abx, IVF replacement, Surgery team following Plan for surgery tomorrow (2) Accelerated hypertension Current Visit: Yes Status: Acute Plan to address problem: Monitor BP q shift, hydralazine prn. (3) Obesity Current Visit: Yes Status: Acute Qualifiers: Obesity type: O Obesity severity: O Plan to address problem: dietary recommendatio when medically stable (4) GERD (gastroesophageal reflux disease) Current Visit: Yes Status: Acute Qualifiers: Esophagitis presence: E Plan to address problem: continue PPI therapy, (5) Acute abdominal pain Current Visit: Yes Status: Acute Plan to address problem: due to cholecystitis. pain control (6) DVT prophylaxis Current Visit: Yes Status: Acute lovenox Subjective Date of service: 10/19/16 Interval history: Pt seen and examined, c/o RUQ pain Had HIDA scan today, surgery following Objective - Constitutional Vitals: Vital Signs - 12hr 10/19/16 10/19/16 10/19/16 04:00 07:00 11:05 Temperature 98.5 F 97.6 F Pulse Rate [ 94 H Left Radial] Pulse Rate [ 97 H Right Radial] Respiratory 18 16 Rate Blood Pressure 152/100 137/92 [Left Arm] O2 Sat by Pulse 98 95 100 Oximetry General appearance: Present: no acute distress, well-nourished - EENT Eyes: PERRL, EOM intact ENT: hearing intact, clear oral mucosa Ears: bilateral: normal - Neck Neck: supple, normal ROM - Respiratory Respiratory effort: normal Respiratory: bilateral: CTA - Cardiovascular Rhythm: regular Heart Sounds: Present: S1 & S2. Absent: gallop, rub Extremities: pulses intact, No edema, normal color, Full ROM - Gastrointestinal General gastrointestinal: Present: soft, tender (RUQ), non-distended, normal bowel sounds - Integumentary Integumentary: clear, warm, dry - Musculoskeletal Musculoskeletal: 1, strength equal bilaterally - Neurologic Neurologic: moves all extremities - Psychiatric Psychiatric: memory intact, appropriate mood/affect, intact judgment & insight - Labs CBC & Chem 7: 10/19/16 04:16 10/19/16 04:16 Labs: Abnormal lab results 10/19/16 10/19/16 Range/Units 04:16 04:16 [place] % (Auto) 10.9 H (0.0-7.3) % [place] # 1.1 H (0.0-0.8) K/mm3 Seg Neutrophils % 70.9 H (40.0-70.0) % BUN 6 L (7-17) mg/dL Albumin 3.6 L (3.9-5) g/dL
[2016-10-19] MEDS ORDERED: D5NS 1,000 ML IV SCH (23:00)
[2016-10-20] MEDS ORDERED: PEPCID PO NR (00:01)
[2016-10-20] MEDS ORDERED: VERSED IV NR (00:01)
[2016-10-20] MEDS: LACTATED RINGERS 1,000 ML IV SCH ×2 (01:05→20:57)
[2016-10-20] MEDS: FLAGYL 500 MG/100 ML 500 MG/100 ML BAG IV SCH ×3 (06:11→22:44)
[2016-10-20 07:00] LABS: Basophils % (Auto) 0.7 % (0.0-1.8); Eosinophils % (Auto) 1.1 % (0.0-4.3); Hematocrit 36.4 % (30.3-42.9); Mean Corpuscular HGB Conc 33 % (30-34); Mean Corpuscular Hemoglobin 29 pg (28-32); Mean Corpuscular Volume 88 fl (79-97); Platelet Count 205 K/mm3 (140-440); Red Blood Count 4.14 M/mm3 (3.65-5.03); Red Cell Distribution Width 13.6 % (13.2-15.2); White Blood Count 7.6 K/mm3 (4.5-11.0)
[2016-10-20 07:13] LABS: Anion Gap 18 mmol/L; BUN/Creatinine Ratio 13.75; Blood Urea Nitrogen 11 mg/dL (7-17); Calcium 8.8 mg/dL (8.4-10.2); Carbon Dioxide 22 mmol/L (22-30); Chloride 99.5 mmol/L (98-107); Glucose 74 mg/dL (65-100); Potassium 3.9 mmol/L (3.6-5.0); Sodium 136 mmol/L (137-145)
[2016-10-20] MEDS: PROTONIX IV SCH (09:02)
[2016-10-20] MEDS: LEVAQUIN 500MG/100ML 500 MG/100 ML BAG IV SCH (09:03)
[2016-10-20] MEDS ORDERED: ZEMURON IV ONE (10:32)
[2016-10-20] MEDS ORDERED: DIPRIVAN 10 MG/ML IV ONE (10:32)
[2016-10-20] MEDS ORDERED: XYLOCAINE MPF 2% ONE (10:32)
[2016-10-20] MEDS ORDERED: DILAUDID ONE (10:32)
[2016-10-20] MEDS ORDERED: MARCAINE 0.5% 0 ML INFILTRATI ONE (10:34)
[2016-10-20] MEDS ORDERED: NACL 0.9% 250ML 0 ML ONE (10:34)
[2016-10-20] MEDS ORDERED: MARCAINE-EPI 0.5%-1:200,000 INFILTRATI ONE ×2 (10:35→11:18)
[2016-10-20] MEDS ORDERED: NACL 0.9% IR ONE (11:18)
[2016-10-20] MEDS ORDERED: ZOFRAN ONE (11:25)
[2016-10-20] MEDS ORDERED: TORADOL ONE (11:30)
[2016-10-20] MEDS ORDERED: NEOSTIGMINE ONE (11:55)
[2016-10-20] MEDS ORDERED: ROBINUL ONE (11:55)
[2016-10-20] MEDS ORDERED: SUBLIMAZE ONE (12:04)
[2016-10-20] MEDS ORDERED: S2 RACEPINEPHRINE 2.25% IH ONE (12:22)
--- NOTE | 2016-10-20 12:34 | Post Anesthesia Evaluation ---
- Post Anesthesia Evaluation Patient Participated: Yes Airway Patent: Yes Stable Respiratory Function: Yes Nausea/Vomiting: No Temp > 96.8F: Yes Pain Manageable: Yes Adequeate Hydration: Yes Anesthesia Complications: No Block Receding Appropriately: Not Applicable Patient on Ventilator: No
--- NOTE | 2016-10-20 13:11 | Operative Report ---
PREOPERATIVE DIAGNOSIS: Rule out acute cholecystitis. POSTOPERATIVE DIAGNOSIS: Rule out acute cholecystitis. FINDINGS: A very distended and thickened, pregangrenous gallbladder. PROCEDURE: Laparoscopic cholecystectomy. SURGEON: Lito Hutchinson MD. ENROBING MACHINE CORDER: Dr. Hernandez. ANESTHESIA: General. ESTIMATED BLOOD LOSS: Minimal. COMPLICATIONS: None. PROCEDURE IN DETAIL: The patient was taken up to the operating room, prepped and draped in usual sterile fashion. A Veress needle was inserted and CO2 insufflation begun. A 5 mm trocar was then inserted and camera inserted. All other trocars were inserted under direct visualization. Attention was then focused to the right upper quadrant where a phlegmonous type omental mass was noted. The omentum was slowly dissected free from the inflamed gallbladder and very distended and pale. Gallbladder was identified. Gallbladder was decompressed with laparoscopic needle. Gallbladder was then grasped at the fundus and infundibulum and retracted towards the right subphrenic space. A large stone was noted to be stuck in the area of the infundibulum. The stone was able to be dislodged and brought back into the gallbladder lumen. Slow dissection was then carried out along the Calot's triangle. The cystic duct and artery were delineated in their entire course. Both were then doubly clipped and transected. Hook electrocautery was used to dissect the gallbladder from the overlying liver bed. The gallbladder itself was quite edematous and some oozing was noted during dissection. The gallbladder was then completely freed and brought out through the subxiphoid port. The entire gallbladder fossa was copiously irrigated and suctioned dry. Hemostasis obtained with electrocautery and also with Surgicel packing. The entire right upper quadrant of the abdomen was then copiously irrigated and suctioned dry. Once again checked for hemostasis and noted to be dry. The fascia at the subxiphoid site was closed with a [id number] 0 Vicryl suture. All other 5 mm ports were previously been removed under direct visualization. No bleeding or oozing noted. 4-0 Vicryl used to close the skin at all port sites. A 0.5% Marcaine with epinephrine was infiltrated over all port sites for postoperative pain relief. The patient tolerated the procedure well and left the OR in stable condition. JOB# [id number] DINORA/NTS
[2016-10-20] MEDS: MORPHINE IV PRN ×2 (14:29→22:49)
--- NOTE | 2016-10-20 14:31 | Progress Note ---
Assessment and Plan 41 YO Female with Obesity, HTN, GERD, Seasonal Allergies presents to ED for evaluation of abdominal pain for the past year, but symptoms have worsened over the past 12 hours before admission. She had CT abdomen and pelvis, US of abdomen suggestive of Cholecystectomy. HiDA scan was also obtained. S/p surgery today. (1) Acute cholecystitis Current Visit: Yes Status: Acute Plan to address problem: IV abx, IVF replacement, Surgery team following s/p surgery today NPO per surgery (2) Accelerated hypertension Current Visit: Yes Status: Acute Plan to address problem: Monitor BP q shift, hydralazine prn. (3) Obesity Current Visit: Yes Status: Acute Qualifiers: Obesity type: O Obesity severity: O Plan to address problem: dietary recommendatio when medically stable (4) GERD (gastroesophageal reflux disease) Current Visit: Yes Status: Acute Qualifiers: Esophagitis presence: E Plan to address problem: continue PPI therapy, (5) Acute abdominal pain Current Visit: Yes Status: Acute Plan to address problem: due to cholecystitis. pain control (6) DVT prophylaxis Current Visit: Yes Status: Acute SCD, d/c lovenox Subjective Date of service: 10/20/16 Interval history: Pt seen and examined, c/o RUQ pain s/p laperoscopic cholecystectomy today Objective - Exam Narrative Exam: General appearance: Present: no acute distress, well-nourished - EENT Eyes: PERRL, EOM intact ENT: hearing intact, clear oral mucosa Ears: bilateral: normal - Neck Neck: supple, normal ROM - Respiratory Respiratory effort: normal Respiratory: bilateral: CTA - Cardiovascular Rhythm: regular Heart Sounds: Present: S1 & S2. Absent: gallop, rub Extremities: pulses intact, No edema, normal color, Full ROM - Gastrointestinal General gastrointestinal: Present: soft, tender (RUQ), non-distended, normal bowel sounds - Integumentary Integumentary: clear, warm, dry - Musculoskeletal Musculoskeletal: 1, strength equal bilaterally - Neurologic Neurologic: moves all extremities - Psychiatric Psychiatric: memory intact, appropriate mood/affect, intact judgment & insight - Constitutional Vitals: Vital Signs - 12hr 10/20/16 10/20/16 10/20/16 07:00 09:43 12:20 Temperature 97.1 F L 99.5 F 97.6 F Pulse Rate 81 102 H Pulse Rate [ 69 Right Radial] Respiratory 18 18 16 Rate Blood Pressure 136/90 124/96 Blood Pressure 112/75 [Left Arm] O2 Sat by Pulse 98 100 100 Oximetry 10/20/16 10/20/16 10/20/16 12:25 12:31 12:35 Temperature Pulse Rate 88 93 H 83 Pulse Rate [ Right Radial] Respiratory 18 22 18 Rate Blood Pressure 156/90 151/91 154/93 Blood Pressure [Left Arm] O2 Sat by Pulse 100 100 100 Oximetry 10/20/16 10/20/16 10/20/16 12:50 13:00 13:15 Temperature Pulse Rate 78 83 82 Pulse Rate [ Right Radial] Respiratory 15 12 13 Rate Blood Pressure 159/90 147/92 153/90 Blood Pressure [Left Arm] O2 Sat by Pulse 100 98 95 Oximetry 10/20/16 10/20/16 10/20/16 13:30 14:02 14:29 Temperature 97.2 F L 97.4 F L Pulse Rate 90 Pulse Rate [ 85 Right Radial] Respiratory 18 16 18 Rate Blood Pressure 153/99 Blood Pressure 141/81 [Left Arm] O2 Sat by Pulse 97 97 Oximetry - Labs CBC & Chem 7: 10/20/16 06:34 10/20/16 06:34 Labs: Abnormal lab results 10/20/16 10/20/16 Range/Units 06:34 06:34 [place] % (Auto) 8.4 H (0.0-7.3) % Sodium 136 L (137-145) mmol/L
[2016-10-20] MEDS ORDERED: LOVENOX SUB-Q SCH (22:00)
[2016-10-21] MEDS: FLAGYL 500 MG/100 ML 500 MG/100 ML BAG IV SCH ×3 (06:05→23:42)
[2016-10-21 07:56] LABS: Basophils % (Auto) 0.2 % (0.0-1.8); Eosinophils % (Auto) 0.2 % (0.0-4.3); Hematocrit 35.3 % (30.3-42.9); Hemoglobin 11.6 gm/dl (10.1-14.3); Mean Corpuscular HGB Conc 33 % (30-34); Mean Corpuscular Hemoglobin 29 pg (28-32); Mean Corpuscular Volume 89 fl (79-97); Platelet Count 217 K/mm3 (140-440); Red Blood Count 3.97 M/mm3 (3.65-5.03); Red Cell Distribution Width 13.4 % (13.2-15.2); White Blood Count 10.8 K/mm3 (4.5-11.0)
[2016-10-21 08:17] LABS: Alanine Aminotransferase 25 units/L (7-56); Albumin 3.2 g/dL (3.9-5); Alkaline Phosphatase 71 units/L (35-129); Chloride 100.4 mmol/L (98-107); Sodium 135 mmol/L (137-145)
[2016-10-21 08:47] LABS: Albumin/Globulin Ratio 0.9 %; Anion Gap 21 mmol/L; BUN/Creatinine Ratio 11.66; Bilirubin,Total 0.8 mg/dL (0.1-1.2); Blood Urea Nitrogen 7 mg/dL (7-17); Calcium 8.7 mg/dL (8.4-10.2); Carbon Dioxide 18 mmol/L (22-30); Glucose 82 mg/dL (65-100); Total Protein 6.9 g/dL (6.3-8.2)
[2016-10-21] MEDS: PROTONIX IV SCH (10:50)
[2016-10-21] MEDS: MORPHINE IV PRN (10:59)
[2016-10-21] MEDS: LEVAQUIN 500MG/100ML 500 MG/100 ML BAG IV SCH (11:18)
[2016-10-21] MEDS: LACTATED RINGERS 1,000 ML IV SCH (12:39)
--- NOTE | 2016-10-21 13:14 | Progress Note ---
Assessment and Plan POD #1 Pt feeling better. neg flatus Abd obese, soft. non tender. hypoactive BS post op LFT's - wnl h/h stable surgically stable attempt low fat cl liq diet continue IV antibiotics x 24 hrs. probable d/c tomorrow on po antibiotics if diet dayanna & stable Selected Entries 10/21/16 08:00 Temperature 98.7 F Pulse Rate [ 82 Apical] Respiratory 18 Rate Blood Pressure 151/92 [Right Arm] Laboratory Tests 10/21/16 10/21/16 07:18 07:18 WBC 10.8 Hgb 11.6 Hct 35.3 Total Bilirubin 0.8 AST 47 H ALT 25 Alkaline Phosphatase 71 Objective Vital Signs - 12hr 10/21/16 10/21/16 10/21/16 04:10 08:00 10:59 Temperature 98.6 F 98.7 F Pulse Rate [ 82 Apical] Pulse Rate [ 79 Right Radial] Respiratory 20 18 24 Rate Blood Pressure 156/92 151/92 [Right Arm] O2 Sat by Pulse 97 95 Oximetry 10/21/16 11:29 Temperature Pulse Rate [ Apical] Pulse Rate [ Right Radial] Respiratory 24 Rate Blood Pressure [Right Arm] O2 Sat by Pulse Oximetry - Labs 10/21/16 07:18 10/21/16 07:18 Diabetes panel 10/21/16 Range/Units 07:18 Sodium 135 L (137-145) mmol/L Potassium 4.0 (3.6-5.0) mmol/L Chloride 100.4 (98-107) mmol/L Carbon Dioxide 18 L (22-30) mmol/L BUN 7 (7-17) mg/dL Creatinine 0.6 L (0.7-1.2) mg/dL Glucose 82 (65-100) mg/dL Calcium 8.7 (8.4-10.2) mg/dL AST 47 H (5-40) units/L ALT 25 (7-56) units/L Alkaline Phosphatase 71 (35-129) units/L Total Protein 6.9 (6.3-8.2) g/dL Albumin 3.2 L (3.9-5) g/dL Calcium panel 10/21/16 Range/Units 07:18 Calcium 8.7 (8.4-10.2) mg/dL Albumin 3.2 L (3.9-5) g/dL Pituitary panel 10/21/16 Range/Units 07:18 Sodium 135 L (137-145) mmol/L Potassium 4.0 (3.6-5.0) mmol/L Chloride 100.4 (98-107) mmol/L Carbon Dioxide 18 L (22-30) mmol/L BUN 7 (7-17) mg/dL Creatinine 0.6 L (0.7-1.2) mg/dL Glucose 82 (65-100) mg/dL Calcium 8.7 (8.4-10.2) mg/dL Adrenal panel 10/21/16 Range/Units 07:18 Sodium 135 L (137-145) mmol/L Potassium 4.0 (3.6-5.0) mmol/L Chloride 100.4 (98-107) mmol/L Carbon Dioxide 18 L (22-30) mmol/L BUN 7 (7-17) mg/dL Creatinine 0.6 L (0.7-1.2) mg/dL Glucose 82 (65-100) mg/dL Calcium 8.7 (8.4-10.2) mg/dL Total Bilirubin 0.8 (0.1-1.2) mg/dL AST 47 H (5-40) units/L ALT 25 (7-56) units/L Alkaline Phosphatase 71 (35-129) units/L Total Protein 6.9 (6.3-8.2) g/dL Albumin 3.2 L (3.9-5) g/dL
--- NOTE | 2016-10-21 15:43 | Progress Note ---
Assessment and Plan 41 YO Female with Obesity, HTN, GERD, Seasonal Allergies presents to ED for evaluation of abdominal pain for the past year, but symptoms have worsened over the past 12 hours before admission. She had CT abdomen and pelvis, US of abdomen suggestive of Cholecystectomy. HiDA scan was also obtained. S/p surgery on 10/20/16. (1) Acute cholecystitis Current Visit: Yes Status: Acute Plan to address problem: IV abx, IVF replacement, Surgery team following s/p surgery, started on clear liquid diet today (2) Accelerated hypertension Current Visit: Yes Status: Acute Plan to address problem: Monitor BP q shift, hydralazine prn. (3) Obesity Current Visit: Yes Status: Acute Qualifiers: Obesity type: O Obesity severity: O Plan to address problem: dietary recommendation when symptom improved (4) GERD (gastroesophageal reflux disease) Current Visit: Yes Status: Acute Qualifiers: Esophagitis presence: E Plan to address problem: continue PPI therapy, (5) Acute abdominal pain Current Visit: Yes Status: Acute Plan to address problem: due to cholecystitis. cont pain control now resolved (6) DVT prophylaxis Current Visit: Yes Status: Acute SCD Subjective Date of service: 10/21/16 Interval history: Pt seen and examined, c/o RUQ pain s/p laperoscopic cholecystectomy 10/20/16 Started on clear liquid diet today Objective - Exam Narrative Exam: General appearance: Present: no acute distress, well-nourished - EENT Eyes: PERRL, EOM intact ENT: hearing intact, clear oral mucosa Ears: bilateral: normal - Neck Neck: supple, normal ROM - Respiratory Respiratory effort: normal Respiratory: bilateral: CTA - Cardiovascular Rhythm: regular Heart Sounds: Present: S1 & S2. Absent: gallop, rub Extremities: pulses intact, No edema, normal color, Full ROM - Gastrointestinal General gastrointestinal: Present: soft, tender (RUQ), non-distended, + bowel sounds, laperoscopic wound in place - Integumentary Integumentary: clear, warm, dry - Musculoskeletal Musculoskeletal: 1, strength equal bilaterally - Neurologic Neurologic: moves all extremities - Psychiatric Psychiatric: memory intact, appropriate mood/affect, intact judgment & insight - Constitutional Vitals: Vital Signs - 12hr 10/21/16 10/21/16 10/21/16 04:10 08:00 10:59 Temperature 98.6 F 98.7 F Pulse Rate [ 82 Apical] Pulse Rate [ 79 Right Radial] Respiratory 20 18 24 Rate Blood Pressure 156/92 151/92 [Right Arm] O2 Sat by Pulse 97 95 Oximetry 10/21/16 11:29 Temperature Pulse Rate [ Apical] Pulse Rate [ Right Radial] Respiratory 24 Rate Blood Pressure [Right Arm] O2 Sat by Pulse Oximetry - Labs CBC & Chem 7: 10/21/16 07:18 10/21/16 07:18 Labs: Abnormal lab results 10/21/16 10/21/16 Range/Units 07:18 07:18 [place] % (Auto) 7.7 H (0.0-7.3) % Seg Neutrophils % 76.7 H (40.0-70.0) % Seg Neutrophils # 8.3 H (1.8-7.7) K/mm3 Sodium 135 L (137-145) mmol/L Carbon Dioxide 18 L (22-30) mmol/L Creatinine 0.6 L (0.7-1.2) mg/dL AST 47 H (5-40) units/L Albumin 3.2 L (3.9-5) g/dL
[2016-10-22] MEDS: LACTATED RINGERS 1,000 ML IV SCH (05:32)
[2016-10-22] MEDS: FLAGYL 500 MG/100 ML 500 MG/100 ML BAG IV SCH (05:32)
--- NOTE | 2016-10-22 07:53 | Progress Note ---
Assessment and Plan POD # 2 Pt feeling well. dayanna cl liq diet Abd soft. surgically stable. low fat solid diet may d/c today from surg perspective if diet dayanna d/c on po Levaquin & Flagyl x 5 days. rto next tues Selected Entries 10/21/16 21:39 Temperature 98.7 F Pulse Rate [ 103 H Right Radial] Respiratory 20 Rate Blood Pressure 135/97 [Right Arm] Objective Vital Signs - 12hr 10/21/16 21:39 Temperature 98.7 F Pulse Rate [ 103 H Right Radial] Respiratory 20 Rate Blood Pressure 135/97 [Right Arm] O2 Sat by Pulse 96 Oximetry - Labs 10/21/16 07:18 10/21/16 07:18 Diabetes panel 10/21/16 Range/Units 07:18 Sodium 135 L (137-145) mmol/L Potassium 4.0 (3.6-5.0) mmol/L Chloride 100.4 (98-107) mmol/L Carbon Dioxide 18 L (22-30) mmol/L BUN 7 (7-17) mg/dL Creatinine 0.6 L (0.7-1.2) mg/dL Glucose 82 (65-100) mg/dL Calcium 8.7 (8.4-10.2) mg/dL AST 47 H (5-40) units/L ALT 25 (7-56) units/L Alkaline Phosphatase 71 (35-129) units/L Total Protein 6.9 (6.3-8.2) g/dL Albumin 3.2 L (3.9-5) g/dL Calcium panel 10/21/16 Range/Units 07:18 Calcium 8.7 (8.4-10.2) mg/dL Albumin 3.2 L (3.9-5) g/dL Pituitary panel 10/21/16 Range/Units 07:18 Sodium 135 L (137-145) mmol/L Potassium 4.0 (3.6-5.0) mmol/L Chloride 100.4 (98-107) mmol/L Carbon Dioxide 18 L (22-30) mmol/L BUN 7 (7-17) mg/dL Creatinine 0.6 L (0.7-1.2) mg/dL Glucose 82 (65-100) mg/dL Calcium 8.7 (8.4-10.2) mg/dL Adrenal panel 10/21/16 Range/Units 07:18 Sodium 135 L (137-145) mmol/L Potassium 4.0 (3.6-5.0) mmol/L Chloride 100.4 (98-107) mmol/L Carbon Dioxide 18 L (22-30) mmol/L BUN 7 (7-17) mg/dL Creatinine 0.6 L (0.7-1.2) mg/dL Glucose 82 (65-100) mg/dL Calcium 8.7 (8.4-10.2) mg/dL Total Bilirubin 0.8 (0.1-1.2) mg/dL AST 47 H (5-40) units/L ALT 25 (7-56) units/L Alkaline Phosphatase 71 (35-129) units/L Total Protein 6.9 (6.3-8.2) g/dL Albumin 3.2 L (3.9-5) g/dL
--- NOTE | 2016-10-22 08:59 | Discharge Summary ---
Providers - Providers Date of Admission: 10/18/16 14:09 Attending physician: YE WATERMAN Primary care physician: MARKET ANALYST Hospitalization Condition: Fair Hospital course: 41 YO Female with Obesity, HTN, GERD, Seasonal Allergies presents to ED for evaluation of abdominal pain for the past year, but symptoms have worsened over the past 12 hours before admission. She had CT abdomen and pelvis, US of abdomen suggestive of Cholecystectomy. HiDA scan was also obtained. S/p surgery on 10/20/16. Discharge Diagnosis and management: (1) Acute cholecystitis Current Visit: Yes Status: Acute Plan to address problem: s/p IV abx, IVF replacement, s/p surgery laparoscopic cholecystectomy, tolerated diet (2) Accelerated hypertension Current Visit: Yes Status: Acute Plan to address problem: Monitored BP q shift, hydralazine prn. salt and dietary restriction f/u out pt with PCP (3) Obesity Current Visit: Yes Status: Acute Qualifiers: Obesity type: O Obesity severity: O Plan to address problem: dietary recommendation provided (4) GERD (gastroesophageal reflux disease) Current Visit: Yes Status: Acute Qualifiers: Esophagitis presence: E Plan to address problem: continue PPI therapy, (5) Acute abdominal pain Current Visit: Yes Status: Acute Plan to address problem: due to cholecystitis. cont pain control now resolved Disposition: DISCHARGED TO HOME OR SELFCARE Time spent for discharge: 32 minutes Core Measure Documentation - Palliative Care Palliative Care/ Comfort Measures: Not Applicable - Core Measures Any of the following diagnoses?: none Exam - Physical Exam Narrative exam: General appearance: Present: no acute distress, well-nourished - EENT Eyes: PERRL, EOM intact ENT: hearing intact, clear oral mucosa Ears: bilateral: normal - Neck Neck: supple, normal ROM - Respiratory Respiratory effort: normal Respiratory: bilateral: CTA - Cardiovascular Rhythm: regular Heart Sounds: Present: S1 & S2. Absent: gallop, rub Extremities: pulses intact, No edema, normal color, Full ROM - Gastrointestinal General gastrointestinal: Present: soft, tender (RUQ), non-distended, + bowel sounds, laperoscopic wound in place - Integumentary Integumentary: clear, warm, dry - Musculoskeletal Musculoskeletal: 1, strength equal bilaterally - Neurologic Neurologic: moves all extremities - Psychiatric Psychiatric: memory intact, appropriate mood/affect, intact judgment & insight - Constitutional Vitals: Temp Pulse Resp BP Pulse Ox 98.7 F 103 H 20 135/97 96 10/21/16 21:39 10/21/16 21:39 10/21/16 21:39 10/21/16 21:39 10/21/16 21:39 Plan Activity: advance as tolerated Diet: low fat, low salt Wound: keep clean and dry Follow up with: PRIMARY CARE, [Primary Care Provider] - 3-5 Days Prescriptions: HYDROcodone/APAP 5-325 [[place] 5/325] 1 each PO Q6HR PRN #20 tablet PRN Reason: Pain Levofloxacin [Levaquin TAB] 500 mg PO QDAY #5 tablet metroNIDAZOLE [Flagyl] 500 mg PO Q8HR #15 tablet
[2016-10-22 09:11] VITALS: BP 158/90
[2016-10-22] MEDS: LEVAQUIN 500MG/100ML 500 MG/100 ML BAG IV SCH (11:27)
[2016-10-22] MEDS: PROTONIX IV SCH (11:28)
[2016-10-22] MEDS: MORPHINE IV PRN (11:28)
[2016-10-23] MEDS ORDERED: PROTONIX PO SCH (10:00)
== END 2016-10-22 13:00 | disposition home or self-care (01) | DRG 419 ==
LOC: ED 06:14 → 2B-SURG 14:09
PROVIDERS: ADMIT Internal Medicine; ATTEND Internal Medicine
PROC: 0FT44ZZ Resection of Gallbladder, Percutaneous Endoscopic Approach (ICD-10-PCS; principal; 2016-10-18)
DX: K80.01 Calculus of gallbladder with acute cholecystitis with obstruction (principal); K21.9 Gastro-esophageal reflux disease without esophagitis; I10 Essential (primary) hypertension; E66.9 Obesity, unspecified; Z68.35 Body mass index [BMI] 35.0-35.9, adult; Z82.49 Family history of ischemic heart disease and other diseases of the circulatory system
CPT/HCPCS: 36415; 74177; 76705; 78226; 80048; 80053; 81001; 81025; 83690; 85025; 88304; 96372; 96374; 96375; A9537; C9113; J0500; J1170; J1885; J1956; J2250; J2270; J2405; J2704; J2710; J3010; J7030; J7050; J7120; Q9967